=== PATIENT | male | born 1935 | race Caucasian/White ===

== ENCOUNTER → 2016-11-13 | Outpatient (CLI) | payer OTHER, MEDICARE ==
[~2016-11-13] VITALS: Ht 180.3 cm; Wt 95.3 kg
[~2016-11-13] MED LIST: ACCUNEB0.63 MG/3 INH; ACETAMINOPHEN325 M1 PO; ADVIL200 M1 PO; ALBUTEROL2.5 MG/31 INH; ASMANEX0.135 GM INH; ASPIR 8181 MG PO; ASPIRIN81 M2 PO; CALCIUM 500 +1 EAC5 PO; CALCIUM 600 +1 EAC2 PO; CEFDINIR300 MG PO; DALIRESP500 MCG PO; FLONASE 0.05%50 MCG NASAL; FOLIC ACID 40400 MCG PO; FUROSEMIDE 20 M20 MG PO; HYDROCHLOROTHIA50 MG PO; HYTRIN 5 M5 MG/1 CAP PO; IBUPROFEN200 M2 PO; K-DUR 20 MEQ T20 MEQ PO; LEVOTHYROXIN0.125 M1 PO; MEDROLDOSEPACK PO; MULTIVITAMINS PO; NORVASC 5 MG TAB5 MG PO; PRAVACHOL20 MG PO; PRAVASTATIN SOD40 MG PO; PREDNISONE 10 M10 MG PO; PRILOSEC 20 MG20 MG PO; SYMBICORT160 MCG/4. INH; SYNTHROID175 MCG PO; VITAMINC500 PO
--- NOTE | ~2016-11-13 | S ---
[facility] [address] [place] [address] SURGICAL PATH RPT PROCEDURE Name: LUISA COBOS Room #: REG BRUNILDA Morales#: [id number] Admission: 11/13/16 Date of : 31 Discharge: Report #: [id number] Path Case #: [id number] PATHOLOGY REPORT DRAFT COLLECTION DATE: 11/13/2016 RECEIVED DATE: 11/13/2016 SPECIMEN(S) RECEIVED: A.Polyp at body of stomach B.Cecum
--- NOTE | ~2016-11-13 | H ---
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 PREOPERATIVE DIAGNOSIS: High risk screening colonoscopy due to polyposis. POSTOPERATIVE DIAGNOSES: 1. Diminutive polyp, cecum. 2. Moderately severe diverticulosis coli. 3. Internal hemorrhoids. 4. 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 MEDICATIONS: Deep sedation with propofol per anesthesia. SPECIMEN: Polyp from cecum. ESTIMATED BLOOD LOSS: 3 mL. PROCEDURE: Colonoscopy to cecum and ileocecal valve with biopsy of findings. Prior to propofol sedation, procedure of colonoscopy was discussed with the patient as well as potential risks, benefits, and complications. He indicates he understands and desires to proceed. DESCRIPTION OF PROCEDURE: With the patient in left lateral decubitus position, digital examination was completed, which revealed no abnormalities. Subsequently, the [employer] video colonoscope was introduced in the rectum, advanced under direct vision to the cecum. Done with minimal difficulty. The cecum was identified by the ileocecal valve as well as the appendiceal orifice. There was some stool in the cecum, we were able to wash up and remove most of it, but not every last bit of it could be removed. Reasonably good views were obtained to the rectum. I could see the mouth of the ileocecal valve, but due to looping of the scope, we could not cross the ileocecal valve. At that point, the scope was slowly withdrawn and careful circumferential views were obtained. As we withdrew the scope, a diminutive polyp was seen in the cecum and removed by biopsy. Scope was further withdrawn and no additional polypoid lesions were seen. As we withdrew the scope through remainder of the colon, the colon was [facility] [address] [place] [address] HISTORY AND PHYSICAL Name: LUISA COBOS Jenniffer [id number] Admission: 11/13/16 Attend Phys: Dinesh Wright MD Discharge: Date of : 31 Report #: [id number] within normal limits, normal vascular pattern, normal light reflex. No other abnormalities were noted until we reached the left colon at which point he was noted to have moderately severe diverticular disease without endoscopic evidence of diverticulitis. The scope was withdrawn in the distal rectum and upon retroflexion, hemorrhoids were seen. He was also noted to have evidence of ____ malformation in the distal 3-4 cm of the rectum. There was no evidence of bleeding. These findings were likely result of his previous radiation therapy. He has not reported bleeding, so intervention was not undertaken today. Scope was withdrawn. The patient tolerated the procedure well. CONDITION OF THE PATIENT UPON DISCHARGE: Following procedure, the patient was drowsy, arousal and conversant. He will be discharged to home when fully ambulatory. INSTRUCTIONS TO THE PATIENT AND FAMILY AT THE TIME OF DISCHARGE: One small polyp today. We will follow up on the path. In view of his history and concerns for attenuated FAP, we will have him return in 1 year for a high risk screening colonoscopy. I would continue to do colonoscopy as along his health remains good. At some point in time, if his health becomes more problematic, continued surveillance may provide little benefit to the patient. He will return to care of Dr. Reis and return to see me as needed. Last colonoscopy was a year ago. Withdrawal time from the cecum was 15 minutes. <ELECTRONICALLY SIGNED> By: Dinesh Wright MD 11/14/16 [id number] Dinesh Wright MD /nt
--- NOTE | ~2016-11-13 | P ---
[facility] [place] [address] PROCEDURE REPORT Name: LUISA COBOS Room #: REG [facility]#: [id number] Admission: 11/13/16 Attend Phys: Dinesh Wright MD Discharge: Date of : 31 Report #: [id number] THIS REPORT FOR: //name// CC: WENCESLAO Wright BRIEF HISTORY: The patient is an 80-year-old male who has a history of polyposis syndrome. Genetic studies were nondiagnostic, but suspicion is high and he is being managed as a genetic polyposis patient. In addition, he has had intermittent solid food dysphagia with previous dilation the past and has had recent intermittent solid food dysphagia. PREOPERATIVE DIAGNOSIS: Colonic polyposis and dysphagia. POSTOPERATIVE DIAGNOSES: 1. Schatzki ring. 2. Duodenal diverticulum. 3. Large polyp body of the stomach. MEDICATIONS: Deep sedation with propofol per anesthesia. SPECIMEN: Biopsies of gastric polyp. ESTIMATED BLOOD LOSS: 3 mL. PROCEDURE: EGD with biopsy and balloon dilation of Schatzki ring. FINDINGS: Prior to propofol sedation, the procedure of upper endoscopy and dilation were discussed with the patient, all potential risks and its complications. He indicates he understands and desires to proceed. DESCRIPTION OF PROCEDURE: With the patient in left lateral decubitus position, the [employer] video endoscope was inserted in the cervical esophagus under direct vision without difficulty. Examination of this organ to its entire length revealed normal esophageal mucosa. At the squamocolumnar junction, a Schatzki ring was intermittently seen. A significant hiatus hernia was not seen. There was no evidence of esophagitis or Navarro mucosa. Scope was advanced in the stomach, which was examined on end view as well as retroflexed views. He had normal-appearing gastric mucosa. However, in the body of the stomach was a relatively large gastric polyp in the range of about 2 cm. It was sessile. It looks smooth and benign. It is likely hyperplastic, but since it is fairly large, multiple biopsies were obtained. Upon retroflexion, no mass lesions were seen. The pylorus was normal. Duodenal bulb was normal. Examination of duodenal sweep down to the third portion revealed normal mucosa. Again, he was found to have a duodenal diverticulum. This diverticulum was large enough that I could advance the tip of the scope into the diverticulum and on the inside of [address] [address] PROCEDURE REPORT Name: LUISA COBOS Room #: REG BRUNILDA Morales#: [id number] Admission: 11/13/16 Attend Phys: Dinesh Wright MD Discharge: Date of : 31 Report #: [id number] the diverticulum, a duodenal papilla was seen, it was noted to be normal and no evidence of mass effect. No polyps were seen in the duodenum. The scope was drawn back into the stomach. Upon retroflexion, no abnormalities were seen. As we withdrew the scope, an 18 mm, 19 mm, 20 mm balloon catheter was advanced over the GE junction. It was insufflated at all 3 levels as noted per facial operator's recommendations. Following dilation, significant mucosal tearing was not seen. Scope was withdrawn. The patient tolerated the procedure well. CONDITION OF THE PATIENT UPON DISCHARGE: Following procedure, the patient drowsy. He was then prepared for colonoscopy. INSTRUCTIONS TO THE PATIENT AND FAMILY AT THE TIME OF DISCHARGE: No lesions seen in his duodenum. Consider repeat EGD in 3 years based on his clinical status at that time with regards to continuing surveillance in this patient with likely genetic polyposis. He should return for dilation as needed based on symptoms of dysphagia. We will proceed with colonoscopy at this time. <ELECTRONICALLY SIGNED> By: Dinesh Wright MD 11/14/16 [id number] Dinesh Wright MD /nt
== END | disposition home or self-care (01) ==
LOC: GI 10-29 10:38
DX: Z09 Encounter for follow-up examination after completed treatment for conditions other than malignant neoplasm (principal); D12.0 Benign neoplasm of cecum; K57.30 Diverticulosis of large intestine without perforation or abscess without bleeding; K31.7 Polyp of stomach and duodenum; K22.2 Esophageal obstruction; K64.8 Other hemorrhoids; K62.89 Other specified diseases of anus and rectum; I10 Essential (primary) hypertension; E78.00 Pure hypercholesterolemia, unspecified; G47.33 Obstructive sleep apnea (adult) (pediatric); K21.9 Gastro-esophageal reflux disease without esophagitis; Z85.46 Personal history of malignant neoplasm of prostate; Z95.5 Presence of coronary angioplasty implant and graft; Z85.850 Personal history of malignant neoplasm of thyroid; Z87.891 Personal history of nicotine dependence; Z95.0 Presence of cardiac pacemaker; Z98.890 Other specified postprocedural states; Z96.653 Presence of artificial knee joint, bilateral; Z98.41 Cataract extraction status, right eye; Z98.42 Cataract extraction status, left eye; Z88.2 Allergy status to sulfonamides; Z88.8 Allergy status to other drugs, medicaments and biological substances; Z79.899 Other long term (current) drug therapy; Z79.82 Long term (current) use of aspirin